=== PATIENT | female | born 1975 | race Caucasian/White ===

== ENCOUNTER 2021-12-01 00:02 | Emergency (ER) | payer SELFPAY ==
[~2021-12-01] VITALS: Ht 167.6 cm; Wt 84.1 kg
[2021-12-01 00:07] VITALS: BP 126/98; TEMP 97.7
[2021-12-01] MEDS ORDERED: LEXAPRO20 MG (00:15)
[2021-12-01] MEDS ORDERED: CLEOCIN HCL300 MG PO (00:46)
[2021-12-01 01:05] VITALS: PULSE 76
== END 2021-12-01 01:05 | disposition home or self-care (01) ==
LOC: COL.ER 00:02
DX: K08.89 Other specified disorders of teeth and supporting structures (principal); Z87.891 Personal history of nicotine dependence